=== PATIENT | male | born 1980 | race Caucasian/White ===

== ENCOUNTER 2017-11-09 17:38 | Emergency (ER) | payer BC, SELFPAY | END 2017-11-09 20:15 | disposition left against medical advice (07) | LOC: ER 20:20 | PROVIDERS: Emergency Provider Emergency Medicine | DX: Z53.29 Procedure and treatment not carried out because of patient's decision for other reasons (principal) | CPT/HCPCS: 99211 ==

== ENCOUNTER 2018-01-31 09:33 | Emergency (ER) | payer BC, SELFPAY ==
[2018-01-31 09:33] VITALS: BP 140/97; PULSE 86; RESP 16; TEMP 36.4; O2SAT 100; BMI 29.2
--- NOTE | 2018-01-31 09:41 | HMH.EDFALL ---
ED Disposition Clinical Impression: Fall, Hypertension, Contusion of hip, right, Lumbar disc disease Disposition: Home, Self-Care Condition on Discharge: Fair Additional Instructions: 1- rest. 2- ice . 3- alternate motrinand tylenol for pain. 4- see pcp in am to discuss, ct scan report and need for an outpatient MRI. 5- nuro vascualr checks and return for any changes. - Critical Care Critical Care Time: No Attestation: On , the high probability of a clinically significant, sudden or life threatening deterioration of the following system(s) required my full and direct attention, intervention and personal management. The time I documented below is in addition to time spent performing reported procedures but includes the following listed in this critical care notation. Medical Decision Making - Edwin Inquiry Pt receiving controlled substance: No Edwin was queried for this patient: No Vital Signs: 01/31/18 09:33 Temperature 97.6 F Temperature Source Oral Pulse Rate [Right Brachial] 86 Respiratory Rate 16 Blood Pressure [Right Arm] 140/97 Blood Pressure Mean [Right Arm] 111 Blood Pressure Source [Right Arm] Automatic Cuff Blood Pressure Position [Right Arm] Supine 02 Sat by Pulse Oximetry 100 Oxygen Delivery Method Room Air Orders (Tests/Meds): ED MEDICATIONS Discontinued Medications Generic Name Dose Route Start Last Admin Trade Name Freq PRN Reason Stop Dose Admin Ketorolac Tromethamine 30 mg 01/31/18 09:42 01/31/18 10:11 Toradol 30mg/Ml Vial IV 01/31/18 09:43 Not Given ONCE ONE Ketorolac Tromethamine 15 mg 01/31/18 09:42 01/31/18 10:11 Toradol 30mg/Ml Vial IV 01/31/18 09:43 15 mg ONCE ONE Administration Fall HPI - General Chief Complaint: Fall Stated Complaint: fall Time Seen by Provider: 01/31/18 10:40 Mode of Arrival: EMS Limitations: No Limitations Description of Symptoms (Recalled from ER Triage Doc. by RN): fell down 3 steps and injured right hip and tailbone - History of Present Illness HPI Narrative: 37 years old white male who was taking his 22 years old son to work when slipped on icy concret steps outside the house. The patient slipped and landed on the right buttock area, he traveled into the house and contacted the EMS service brought him to the ED for evaluation. He denies having numbness tingling weakness of the lower extremities, there is no loss of urine or bowel count. He has no radicular pain to the lower extreme. He denies that he hit his head or neck, he denies loss of conscious, denies recent consumption of alcohol or use of drugs. MD complaint: fall Onset (ago): minute(s) (30 minutes prior to arrival.) Fall from: standing Place fall occurred: home Loss of consciousness: none Prolonged down time: no Symptoms prior to fall: none Context: tripped/slipped Location of injury: buttocks (Right buttock.) Severity: severe Severity scale (1-10): 10 Quality: dull, other (Dull throbbing pain without radiation.) Associated symptoms (after fall): denies - Related Data Home Medications Medication Instructions Recorded Confirmed Atorvastatin Calcium [Atorvastatin 10 mg PO DAILY 01/31/18 01/31/18 10mg Tab] Lisinopril [Lisinopril 10mg Tab] 10 mg PO DAILY 01/31/18 01/31/18 Allergies Allergy/AdvReac Type Severity Reaction Status Date / Time No Known Drug Allergies Allergy Unknown Verified 01/31/18 10:10 [facility] History I have reviewed the patient's past medical history: Yes (History was provided by the patient and EMS.) - Social History Educational Level: Completed High School Smoking Status: Current every day smoker Tobacco Type: cigarettes Alcohol Intake: never - Psychiatric History Expresses thoughts of harming self/others: None Suicide Plan Description: No Plan ROS Obtained: Yes All systems reviewed & no additional complaints Physical Exam - General General appearance: alert, in no apparent dist
--- NOTE | 2018-01-31 09:42 | CT_ITS ---
CT lumbar spine wo con INDICATION: Low back pain following injury ITS.REASON: fall ORDERING PHYSICIAN: Meryl Irizarry MD PATIENT AGE: 37 years COMPARISON: None TECHNIQUE: Axial images are obtained without contrast. Sagittal and coronal reformatted images are reviewed as well. All CT scans at the facility use one or more dose reduction, viz: automated exposure control; ma/kV adjustment per patient size (including targeted exams where dose is matched to indication; i.e. head); or iterative reconstruction technique. FINDINGS: Normal alignment. No fracture or dislocation. Minimal bulging disc is present at L4-L5 and L5-S1. No prevertebral soft tissue swelling. No lytic or blastic change. Incidental note made of prominent left renal pelvis versus parapelvic renal cysts. IMPRESSION: 1. No acute fracture. 2. Minimal bulging disc at L4-5 and L5-S1. 3. Prominent left renal pelvis versus parapelvic renal cyst
--- NOTE | 2018-01-31 09:42 | CT_ITS ---
CT pelvis wo con INDICATION: Pelvic pain following injury ITS.REASON: fall ORDERING PHYSICIAN: Meryl Irizarry MD PATIENT AGE: 37 years COMPARISON: None TECHNIQUE: Axial images are obtained without contrast. Sagittal and coronal reformatted images are reviewed as well. All CT scans at the facility use one or more dose reduction, viz: automated exposure control; ma/kV adjustment per patient size (including targeted exams where dose is matched to indication; i.e. head); or iterative reconstruction technique. FINDINGS: No fracture or dislocation. No lytic or blastic change. No obvious pelvic mass or hematoma IMPRESSION: Negative CT pelvis, no acute fracture apparent
--- NOTE | 2018-01-31 09:46 | ED_ITS ---
ED Disposition Clinical Impression: Fall, Hypertension, Contusion of hip, right, Lumbar disc disease Disposition: Home, Self-Care Condition on Discharge: Fair Additional Instructions: 1- rest. 2- ice . 3- alternate motrinand tylenol for pain. 4- see pcp in am to discuss, ct scan report and need for an outpatient MRI. 5- nuro vascualr checks and return for any changes. - Critical Care Critical Care Time: No Attestation: On , the high probability of a clinically significant, sudden or life threatening deterioration of the following system(s) required my full and direct attention, intervention and personal management. The time I documented below is in addition to time spent performing reported procedures but includes the following listed in this critical care notation. Medical Decision Making - Edwin Inquiry Pt receiving controlled substance: No Edwin was queried for this patient: No Vital Signs: 01/31/18 09:33 Temperature 97.6 F Temperature Source Oral Pulse Rate [Right Brachial] 86 Respiratory Rate 16 Blood Pressure [Right Arm] 140/97 Blood Pressure Mean [Right Arm] 111 Blood Pressure Source [Right Arm] Automatic Cuff Blood Pressure Position [Right Arm] Supine 02 Sat by Pulse Oximetry 100 Oxygen Delivery Method Room Air Orders (Tests/Meds): ED MEDICATIONS Discontinued Medications Generic Name Dose Route Start Last Admin Trade Name Freq PRN Reason Stop Dose Admin Ketorolac Tromethamine 30 mg 01/31/18 09:42 01/31/18 10:11 Toradol 30mg/Ml Vial IV 01/31/18 09:43 Not Given ONCE ONE Ketorolac Tromethamine 15 mg 01/31/18 09:42 01/31/18 10:11 Toradol 30mg/Ml Vial IV 01/31/18 09:43 15 mg ONCE ONE Administration Fall HPI - General Chief Complaint: Fall Stated Complaint: fall Time Seen by Provider: 01/31/18 10:40 Mode of Arrival: EMS Limitations: No Limitations Description of Symptoms (Recalled from ER Triage Doc. by RN): fell down 3 steps and injured right hip and tailbone - History of Present Illness HPI Narrative: 37 years old white male who was taking his 22 years old son to work when slipped on icy concret steps outside the house. The patient slipped and landed on the right buttock area, he traveled into the house and contacted the EMS service brought him to the ED for evaluation. He denies having numbness tingling weakness of the lower extremities, there is no loss of urine or bowel count. He has no radicular pain to the lower extreme. He denies that he hit his head or neck, he denies loss of conscious, denies recent consumption of alcohol or use of drugs. MD complaint: fall Onset (ago): minute(s) (30 minutes prior to arrival.) Fall from: standing Place fall occurred: home Loss of consciousness: none Prolonged down time: no Symptoms prior to fall: none Context: tripped/slipped Location of injury: buttocks (Right buttock.) Severity: severe Severity scale (1-10): 10 Quality: dull, other (Dull throbbing pain without radiation.) Associated symptoms (after fall): denies - Related Data Home Medications Medication Instructions Recorded Confirmed Atorvastatin Calcium [Atorvastatin 10 mg PO DAILY 01/31/18 01/31/18 10mg Tab] Lisinopril [Lisinopril 10mg Tab] 10 mg PO DAILY 01/31/18 01/31/18
[2018-01-31 10:51] VITALS: BP 132/89; PULSE 78; RESP 18; TEMP 36.9; O2SAT 96
== END 2018-01-31 10:53 | disposition home or self-care (01) ==
PROVIDERS: Emergency Provider Emergency Medicine
DX: S70.01XA Contusion of right hip, initial encounter (principal); M51.9 Unspecified thoracic, thoracolumbar and lumbosacral intervertebral disc disorder; W01.0XXA Fall on same level from slipping, tripping and stumbling without subsequent striking against object, initial encounter; Y92.019 Unspecified place in single-family (private) house as the place of occurrence of the external cause
CPT/HCPCS: 72131; 72192; 96374; 99282

== ENCOUNTER → 2018-04-06 14:19 | Outpatient (CLI) | payer OTHER, SELFPAY ==
--- NOTE | 2018-04-06 14:22 | US_ITS ---
US scrotum HISTORY: Testicular pain following injury ITS.REASON: Testilar Injury ORDERING PHYSICIAN: Pk Higgins MD PATIENT AGE: 37 years Comparison: None FINDINGS: The right testicle measures 3.8 x 2.7 x 2.9 cm. Blood flow is present. No mass or of significant anomalies evident. The left testicle is 3.5 x 2 x 3 cm. Blood flow is present. There is a small varicocele on the left. No testicular mass or hematoma. No abnormal fluid collections. IMPRESSION: Small left-sided varicocele otherwise negative bilateral testicular ultrasound
== END ==
PROVIDERS: PCP Family Medicine; Visit Provider Emergency Medicine
DX: S39.94XA Unspecified injury of external genitals, initial encounter (principal)
CPT/HCPCS: 76870

== ENCOUNTER 2019-02-07 21:27 | Observation (INO) ==
[2019-02-07 21:50] LABS: Basophils # 0.1 K/mm3 (0-0.2); Basophils % 1.1 % (0.1-2.0); Eosinophils # 0.2 K/mm3 (0.0-0.4); Eosinophils % 2.2 % (0.1-12.0); Hemoglobin 15.5 g/dL (14.1-18.0); Lymphocytes # 3.2 K/mm3 (0.7-4.5); Lymphocytes % 45.3 % (10-50); Mean Corpuscular HGB Conc 33.8 g/dL (31.8-35.4); Mean Corpuscular Hemoglobin 28.4 pg (27.0-31.2); Mean Corpuscular Volume 83.9 fl (80-94); Mean Platelet Volume 7.2 fl (7.4-10.4); Monocytes # 0.5 K/mm3 (0.1-1.0); Monocytes % 6.5 % (1.7-9.3); Neutrophils # 3.2 K/mm3 (1.8-7.8); Neutrophils % 44.9 % (37.0-80.0); Platelet Count 267 K/mm3 (142-424); Red Blood Count 5.48 M/mm3 (4.60-6.20); Red Cell Distribution Width 12.9 % (11.5-17.5)
[2019-02-07 22:04] LABS: Alanine Aminotransferase 77 U/L (12-78); Albumin Level 4.1 gm/dL (3.4-5.0); Alkaline Phosphatase 68 U/L (46-116); Anion Gap 13.7 mEq/L (5-15); Aspartate Amino Transferase 32 U/L (15-37); Bilirubin,Total 0.3 mg/dL (0.2-1.0); Blood Urea Nitrogen 14 mg/dL (7-18); Calcium 9.3 mg/dL (8.5-10.1); Carbon Dioxide 29 mmol/L (21.0-32.0); Chloride 103 mmol/L (98-107); Globulin 4.1 gm/dl (1.3-3.2); Glucose 102 mg/dL (74-106); Potassium 3.7 mmoL/L (3.5-5.1); Sodium 142 mmol/L (136-145); Total Protein,Serum 8.2 gm/dL (6.4-8.2)
--- NOTE | 2019-02-07 22:04 | Emergency Department Note ---
ED Disposition Clinical Impression: Renal insufficiency, Obesity (BMI 30.0-34.9) Chest pain Qualifiers: Chest pain type: precordial pain Qualified Code(s): R07.2 - Precordial pain Hypertension Qualifiers: Hypertension type: essential hypertension Qualified Code(s): I10 - Essential (primary) hypertension Hyperlipidemia Qualifiers: Hyperlipidemia type: unspecified Qualified Code(s): E78.5 - Hyperlipidemia, unspecified Disposition: Admitted as Observation Condition on Discharge: Good Referrals: Barb Guadalupe MD [Primary Care Provider] - - Critical Care Critical Care Time: No Attestation: On 02/07/19, the high probability of a clinically significant, sudden or life threatening deterioration of the following system(s) required my full and direct attention, intervention and personal management. The time I documented below is in addition to time spent performing reported procedures but includes the following listed in this critical care notation. Medical Decision Making - Medical Records Medical records reviewed: Yes: I reviewed the patient's medical records. - Edwin Inquiry Pt receiving controlled substance: No Vital Signs: 02/07/19 21:28 Temperature 98.1 F Temperature Source Oral Pulse Rate [Right Brachial] 98 H Respiratory Rate 18 Blood Pressure [Right Arm] 153/112 H Blood Pressure Mean [Right Arm] 125 Blood Pressure Source [Right Arm] Automatic Cuff Blood Pressure Position [Right Arm] Supine 02 Sat by Pulse Oximetry 98 Oxygen Delivery Method Room Air - Lab Data Lab results reviewed: Yes: I reviewed the patient's lab results. Lab Results 02/07/19 21:40: WBC 7.0, RBC 5.48, Hgb 15.5, Hct 46.0, MCV 83.9, MCH 28.4, MCHC 33.8, RDW 12.9, Plt Count 267, MPV 7.2 L, Neut % (Auto) 44.9, Lymph % (Auto) 45.3, [place] % (Auto) 6.5, Eos % (Auto) 2.2, Baso % (Auto) 1.1, Neut # (Auto) 3.2, Lymph # (Auto) 3.2, [place] # (Auto) 0.5, Eos # (Auto) 0.2, Baso # (Auto) 0.1 02/07/19 21:40: Sodium 142, Potassium 3.7, Chloride 103, Carbon Dioxide 29, Anion Gap 13.7, BUN 14, Creatinine 1.47 H, Estimated Creat Clear 90, Estimated GFR 53 L, Est GFR ( Amer) 64, Glucose 102, Calcium 9.3, Total Bilirubin 0.3, AST 32, ALT 77, Alkaline Phosphatase 68, Troponin I < 0.02, Total Protein 8.2, Albumin 4.1, Globulin 4.1 H, Albumin/Globulin Ratio 1.0 L Result diagrams: 02/07/19 21:40 02/07/19 21:40 Orders (Tests/Meds): ED MEDICATIONS Generic Name Dose Route Start Last Admin Trade Name Freq PRN Reason Stop Dose Admin Sodium Chloride 10 ml 02/07/19 21:41 Saline Flush 10ml Syringe IV 03/09/19 21:40 NEEDED PRN Maintain IV Site Discontinued Medications Generic Name Dose Route Start Last Admin Trade Name Freq PRN Reason Stop Dose Admin Aspirin 324 mg 02/07/19 21:48 02/07/19 21:38 Aspirin 81mg Chewable Tablet PO 02/07/19 21:49 324 mg ONCE ONE Administration ORDERS Category Date Time Status Chest XR 2 view (NOT portable) [XR chest 2V] Stat Exams 02/07/19 21:40 Taken UA [Urinalysis and Microscopic] Stat Lab 02/07/19 21:41 Ordered 12-lead EKG Request [ECG Request by /Lorelei] Stat Y 02/07/19 21:39 Ordered - Radiology Data #1 Image(s): Chest Image Reviewed: Yes I reviewed the patient's radiology image Preliminary Findings: Normal/NAD - ECG Data Tracing #1 Normal Sinus Rhythm: Yes Ischemic changes: non-specific ST-T wave changes - Physician Consults Physician Consulted: nitin Reason -: Admission Chest Pain HPI - General Chief Complaint: Chest Pain Stated Complaint: high blood pressure, dizziness Time Seen by Provider: 02/07/19 21:40 Mode of Arrival: Ambulatory Source of Information: Patient, Medical Record Limitations: No Limitations Description of Symptoms (Recalled from ER Triage Doc. by RN): Starting around 1700 reports feeling dizzy, exhausted and persistent hypertension. Also reports left sided chest pain. Pain does not radiate and reports it to be a 2/10. - History of Present Illness HPI narrative: after moving tv yesterday has dev ant chest pain with exertion and has elevated bp - MD complaint: chest pain indicative of cardiac Onset (ago): hour(s) Duration: intermittent Activity at onset: during exertion Pain location: left chest Severity: moderate Quality: sharp Pain radiation: none Exacerbating factors: exertion Associated symptoms: other Risk Factors for CAD: Hypertension, Hypercholesterolemia, Family Hx of CAD Treatments prior to or on arrival for Cardiac Chest Pain: none - PAULA Score for Non-Stemi Age of Patient: 40-49 years old Heart Rate: 90-109 bpm Systolic Blood Pressure: 140-159 mmHg Serum Creatinine: 1.20-1.59 mg/dl CHF [place] Class: I-No CHF Other Risk Factors: None Non-Stemi Risk Score: 74 - Related Data Home Medications Medication Instructions Recorded Confirmed Atorvastatin Calcium [Atorvastatin 10 mg PO DAILY 01/31/18 02/07/19 10mg Tab] Lisinopril [Lisinopril 10mg Tab] 10 mg PO DAILY 01/31/18 02/07/19 Allergies Allergy/AdvReac Type Severity Reaction Status Date / Time No Known Drug Allergies Allergy Unknown Verified 06/03/18 09:10 [facility] History - Hepatitis A Screen Drug use history?: No High risk sexual behaviors?: No History of sexually transmitted infection?: No Currently employed?: No Childcare worker?: No Do you have indoor plumbing?: Yes Do you have electricity?: Yes Attestation statement:: This patient has been screened for Hepatitis A risk factors. I have reviewed the patient's past medical history: Yes Medical History: Reports:: Hyperlipidemia, Hypertension Other Medical History: Reports: Other Other Surgeries: Yes: No Previous Surgery Amputation: No Fractures: No - Social History Smoking Status: Never smoker Tobacco Type: cigarettes Alcohol Intake: never Substance Use Type: denies use Occupational Status: employed Housing: house Household Members: family - Psychiatric History Expresses thoughts of harming self/others: None Suicide Plan Description: No Plan Family Hx:: No significant family history ROS Obtained: Yes All systems reviewed & no additional complaints - Constitutional Constitutional: Denies fever(s) - Eyes Eyes: Denies change in vision - ENT Ears, Nose, Mouth, and Throat: Denies sore throat - Cardiovascular Cardiovascular: Reports chest pain, Denies dyspnea - Respiratory Respiratory: No cough - Gastrointestinal Gastrointestingal: Denies: abdominal pain - Genitourinary Male Genitourinary: Denies hematuria - Musculoskeletal Musculoskeletal: Denies joint pain - Integumentary/Breasts Skin/Breast: Denies rash - Neurologic Neurologic: Denies seizure-like activity Physical Exam - General General appearance: alert, obese - Head Head exam: normocephalic - Eye Eye exam: Present: PERRL, EOMI - ENT ENT exam: Present: mucous membranes moist - Neck Neck exam: Present: trachea midline - Chest Chest inspection: Present: normal inspection - Respiratory Respiratory exam: Present: normal lung sounds bilaterally. Absent: respiratory distress - Cardiovascular Cardiovascular exam: Present: regular rate, systolic murmur. Absent: rubs - Abdominal Exam Abdominal exam: Present: soft - Extremities Exam Extremities exam: Present: full ROM - Neurological Exam Neurological exam: Present: alert, oriented X3, CN II-XII intact - Psychiatric Psychiatric exam: Present: normal affect - Skin Skin exam: Absent: rash
[2019-02-08 06:25] LABS: Basophils # 0.1 K/mm3 (0-0.2); Basophils % 0.9 % (0.1-2.0); Eosinophils # 0.1 K/mm3 (0.0-0.4); Eosinophils % 2.2 % (0.1-12.0); Hemoglobin 14.5 g/dL (14.1-18.0); Lymphocytes # 2.6 K/mm3 (0.7-4.5); Lymphocytes % 41.1 % (10-50); Mean Corpuscular HGB Conc 33.6 g/dL (31.8-35.4); Mean Corpuscular Hemoglobin 28.4 pg (27.0-31.2); Mean Corpuscular Volume 84.6 fl (80-94); Mean Platelet Volume 7.4 fl (7.4-10.4); Monocytes # 0.5 K/mm3 (0.1-1.0); Monocytes % 7.4 % (1.7-9.3); Neutrophils # 3.1 K/mm3 (1.8-7.8); Neutrophils % 48.4 % (37.0-80.0); Platelet Count 230 K/mm3 (142-424); Red Blood Count 5.08 M/mm3 (4.60-6.20); Red Cell Distribution Width 12.9 % (11.5-17.5); White Blood Count 6.4 K/mm3 (4.8-10.8)
[2019-02-08 06:27] LABS: Anion Gap 13.8 mEq/L (5-15); Calcium 9.2 mg/dL (8.5-10.1); Chol/HDL Ratio 5.5 (1-3.5); Potassium 3.8 mmoL/L (3.5-5.1)
--- NOTE | 2019-02-08 07:20 | Pharmacy Consult Notes ---
[facility] Pharmacy VTE Monitoring - Patient Demographics Admission date: 02/07/19 Report Date: 02/08/19 Time: 07:19 Allergies/Adverse Reactions: Patient Allergies No Known Drug Allergies Allergy (Unknown, Verified 06/03/18 09:10) Height: 1.75 m Weight: 95.572 kg Patient Problems: Current Active Problems Hypertension (Acute) Chest pain (Acute) Renal insufficiency (Acute) Hyperlipidemia (Acute) Obesity (BMI 30.0-34.9) (Acute) - VTE Risk Labs: VTE Related Lab Results Hgb 14.5 g/dL (14.1-18.0) 02/08/19 05:50 Hct 43.0 % (42.0-52.0) 02/08/19 05:50 Plt Count 230 K/mm3 (142-424) 02/08/19 05:50 BUN 13 mg/dL (7-18) 02/08/19 05:50 Creatinine 1.06 mg/dL (0.70-1.30) D 02/08/19 05:50 Estimated Creat Clear 125 mL/min (50-200) 02/08/19 05:50 Was VTE Risk Assessment Performed: Yes VTE Risk Level: Very Low Risk Clinical Trial Participant: No - Prophylaxis VTE Prophylaxis Ordered?: Yes Types of VTE Prophylaxis: TEDS Knee High
--- NOTE | 2019-02-08 08:46 | Consult Report ---
Addendum entered and electronically signed by KHRIS Rao 02/08/19 12:18: Patient exercised on a Lexx protocol stress test for 8/2 minutes and achieved 10.1 METs of activity. Rare PVC noted. Normal ST response noted. [place] to be a negative maximal stress test. Recommend low-dose beta-parrish (Toprol-XL 25 mg nightly) for chest pain, hypertension and borderline low ejection fraction. Continue lisinopril therapy. Patient could be discharged home from a cardiology standpoint with outpatient follow-up in 2 weeks. Original Note: History of Present Illness Consult date: 02/08/19 Requesting physician: Barb Guadalupe Consult reason: chest pain Chief complaint: chest pain Additional Medical History:: 1. HTN, treated for >5 yrs 2. HLD, treated for >5 yrs 3. FH of CAD in father History of present illness: 38-year-old white male with history of hypertension and hyperlipidemia presented to the emergency department last evening for chest discomfort. Patient was at work climbing up and down a machine when he developed progressive increase in chest discomfort without radiation. He denies nausea, vomiting or diaphoresis. He does relate similar symptoms in the past prior to being started on blood pressure medications. Blood pressure in the emergency department last evening was noted to be 153/113 mmHg. Patient does relate as his blood pressure is come down his symptoms have resolved. His troponins overnight are normal. His EKG is sinus normal. Preliminary echo shows slightly reduced LVEF without wall motion abnormalities with evidence of hypertensive changes in the form of increased wall thickness. Cardiology consulted for evaluation. [facility] History Medical History: Reports:: Hyperlipidemia, Hypertension Denies:: Cancer, Diabetes Mellitus Type 1, Diabetes Mellitus Type 2, MRSA *Have you ever received a pneumonia vaccine?: No *Have you received a flu vaccine this season?: No Other Medical History: Reports: Other Other Surgeries: Yes: No Previous Surgery Amputation: No Fractures: No - *Social History Educational Level: Completed High School Smoking Status: Never smoker Tobacco Type: cigarettes Alcohol Intake: never Substance Use Type: denies use *Occupational Status:: employed Housing: house Household Members: family *Travel in the last 8 weeks: None - Psychiatric History Expresses thoughts of harming self/others: None Suicide Plan Description: No Plan Family Hx:: Asthma, Diabetes, Hyperlipidemia, Hypertension Meds Home Medications Medication Instructions Recorded Confirmed Type Atorvastatin Calcium [Atorvastatin 10 mg PO DAILY 01/31/18 02/07/19 History 10mg Tab] Lisinopril [Lisinopril 10mg Tab] 10 mg PO DAILY 01/31/18 02/07/19 History Allergies Allergy/AdvReac Type Severity Reaction Status Date / Time No Known Drug Allergies Allergy Unknown Verified 06/03/18 09:10 Review of Systems - *Cardiovascular Reports chest pain, Reports shortness of breath with activity, Denies fast heart rate - *Respiratory Reports shortness of breath with activity, Denies cough - *Gastrointestinal Denies abdominal pain, Denies loose stools - *Genitourinary Denies blood in urine - *Musculoskeletal Denies joint pain, Denies back pain - *Neurologic Denies seizure-like activity Exam Vital signs and Labs for Last 24 Hours: Temp Pulse Resp BP Pulse Ox 97.9 F 74 15 127/83 98 02/08/19 07:25 02/08/19 07:25 02/08/19 07:25 02/08/19 07:25 02/08/19 07:25 Laboratory Results - last 24 hr 02/07/19 21:40: WBC 7.0, RBC 5.48, Hgb 15.5, Hct 46.0, MCV 83.9, MCH 28.4, MCHC 33.8, RDW 12.9, Plt Count 267, MPV 7.2 L, Neut % (Auto) 44.9, Lymph % (Auto) 45.3, [place] % (Auto) 6.5, Eos % (Auto) 2.2, Baso % (Auto) 1.1, Neut # (Auto) 3.2, Lymph # (Auto) 3.2, [place] # (Auto) 0.5, Eos # (Auto) 0.2, Baso # (Auto) 0.1 02/07/19 21:40: Sodium 142, Potassium 3.7, Chloride 103, Carbon Dioxide 29, Anion Gap 13.7, BUN 14, Creatinine 1.47 H, Estimated Creat Clear 90, Estimated GFR 53 L, Est GFR ( Amer) 64, Glucose 102, Calcium 9.3, Total Bilirubin 0.3, AST 32, ALT 77, Alkaline Phosphatase 68, Troponin I < 0.02, Total Protein 8.2, Albumin 4.1, Globulin 4.1 H, Albumin/Globulin Ratio 1.0 L 02/08/19 01:45: Troponin I < 0.02 02/08/19 04:41: Troponin I < 0.02 02/08/19 05:50: WBC 6.4, RBC 5.08, Hgb 14.5, Hct 43.0, MCV 84.6, MCH 28.4, MCHC 33.6, RDW 12.9, Plt Count 230, MPV 7.4, Neut % (Auto) 48.4, Lymph % (Auto) 41.1, [place] % (Auto) 7.4, Eos % (Auto) 2.2, Baso % (Auto) 0.9, Neut # (Auto) 3.1, Lymph # (Auto) 2.6, [place] # (Auto) 0.5, Eos # (Auto) 0.1, Baso # (Auto) 0.1 02/08/19 05:50: Sodium 142, Potassium 3.8, Chloride 104, Carbon Dioxide 28, Anion Gap 13.8, BUN 13, Creatinine 1.06 D, Estimated Creat Clear 125, Estimated GFR 77, Est GFR ( Amer) 94 D, Glucose 91, Calcium 9.2, Magnesium 2.2, Triglycerides 211 H, Cholesterol 170, LDL Cholesterol 97, VLDL Cholesterol 42 H, HDL Cholesterol 31, Cholesterol/HDL Ratio 5.5 H I & O for Last 24 hours: Intake & Output 02/05/19 02/06/19 02/07/19 02/08/19 11:59 11:59 11:59 11:59 Intake Total 411 / 411 Output Total 400 / 400 Balance Weight 210 lb 11.203 oz - *Routine HEENT Exam Head: Present: normocephalic Eye: Present: EOMI, PERRL ENT: Present: mucous membranes moist - *Routine Neck Exam Present: supple. Absent: JVD, carotid bruit - *Routine Respiratory Exam Present: CTA bilaterally. Absent: accessory muscle use, rales, rhonchi, wheezes - *Routine Cardiovascular Exam Present: RRR. Absent: murmur, gallop, rubs - *Routine Abdominal Exam Present: soft. Absent: tenderness, distended, guarding - *Routine Extremities Exam Absent: edema, calf tenderness - *Routine Neurological Exam Present: alert, oriented X3, moving all extremities Assessment and Plan (1) Chest pain Current visit: Yes Status: Acute Qualifiers: Chest pain type: precordial pain Qualified Code(s): R07.2 - Precordial pain Category: Medical Code(s): R07.9 - Chest pain, unspecified (2) Hyperlipidemia Current visit: Yes Status: Acute Qualifiers: Hyperlipidemia type: unspecified Qualified Code(s): E78.5 - Hyperlipidemia, unspecified Category: Medical Code(s): E78.5 - Hyperlipidemia, unspecified (3) Hypertension Current visit: Yes Status: Acute Qualifiers: Hypertension type: essential hypertension Qualified Code(s): I10 - Essential (primary) hypertension Category: Medical Code(s): I10 - Essential (primary) hypertension - Assessment and plan all Dx Assessment and Plan for all problems:: 1. With normal troponins, normal EKG and resolution of symptoms with improved BP, will recommend GXT today for further evaluation. 2. Borderline reduced LVEF without wall motion abnormalities likely due to hypertensive heart disease. 3. Further recommendations to follow.
--- NOTE | 2019-02-08 09:04 | History & Physical Report ---
*Admission Date: 02/07/19 *Chief complaint: Chest pain and high blood pressure. *History of present illness: Mr. Brown is a 38-year-old male with a history of hypertension and hyperlipidemia who was brought to the emergency room by his coworkers after experiencing chest discomfort while working. 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 He describes the chest discomfort as being sharp and continuous. It was associated with some shortness of breath. He denies nausea, vomiting, diaphoresis and palpitations. He states he had some similar symptoms in the past prior to being started on blood pressure medication. Blood pressure in the emergency room was noted to be 153/113. With a decrease in his blood pressure his symptoms did resolve. This a.m. he denies chest discomfort and shortness of breath. Cardiology has seen patient this a.m. with notation as follows: Troponins overnight have been normal. EKG appears normal. Preliminary echo shows a slight reduced left ventricular ejection fraction without wall motion abnormalities with evidence of hypertensive changes in the form of increased wall thickness. Recommend [facility] History Medical History: Reports:: Hyperlipidemia, Hypertension Denies:: Cancer, Diabetes Mellitus Type 1, Diabetes Mellitus Type 2, MRSA *Have you ever received a pneumonia vaccine?: No *Have you received a flu vaccine this season?: No Other Medical History: Reports: Other Other Surgeries: Yes: No Previous Surgery Amputation: No Fractures: No - *Social History Educational Level: Completed High School Smoking Status: Never smoker Alcohol Intake: never Substance Use Type: denies use *Occupational Status:: employed Housing: house Household Members: family *Travel in the last 8 weeks: None - Psychiatric History Expresses thoughts of harming self/others: None Suicide Plan Description: No Plan Family Hx:: Asthma, Diabetes, Hyperlipidemia, Hypertension Review of Systems - Constitutional Denies headache(s) - Eyes Denies change in vision - ENT Denies ear pain, Denies sore throat - *Cardiovascular Reports chest pain, Reports shortness of breath - *Respiratory Reports shortness of breath, Denies chest congestion, Denies cough - *Gastrointestinal Reports heartburn, Denies change in bowel habits - *Genitourinary Denies difficulty urinating - *Musculoskeletal Denies joint pain - *Neurologic Denies headache(s), Denies seizure-like activity Meds Home Medications Medication Instructions Recorded Confirmed Type Lisinopril [Lisinopril 10mg Tab] 10 mg PO DAILY 01/31/18 02/07/19 History Atorvastatin Calcium [Atorvastatin 20 mg PO HS 02/08/19 02/08/19 History 20mg Tab] Allergies Allergy/AdvReac Type Severity Reaction Status Date / Time No Known Drug Allergies Allergy Unknown Verified 06/03/18 09:10 Exam Vital signs and Labs for Last 24 Hours: Temp Pulse Resp BP Pulse Ox 97.9 F 70 15 127/83 98 02/08/19 07:25 02/08/19 08:00 02/08/19 07:25 02/08/19 07:25 02/08/19 07:25 Laboratory Results - last 24 hr 02/07/19 21:40: WBC 7.0, RBC 5.48, Hgb 15.5, Hct 46.0, MCV 83.9, MCH 28.4, MCHC 33.8, RDW 12.9, Plt Count 267, MPV 7.2 L, Neut % (Auto) 44.9, Lymph % (Auto) 45.3, [place] % (Auto) 6.5, Eos % (Auto) 2.2, Baso % (Auto) 1.1, Neut # (Auto) 3.2, Lymph # (Auto) 3.2, [place] # (Auto) 0.5, Eos # (Auto) 0.2, Baso # (Auto) 0.1 02/07/19 21:40: Sodium 142, Potassium 3.7, Chloride 103, Carbon Dioxide 29, Anion Gap 13.7, BUN 14, Creatinine 1.47 H, Estimated Creat Clear 90, Estimated GFR 53 L, Est GFR ( Amer) 64, Glucose 102, Calcium 9.3, Total Bilirubin 0.3, AST 32, ALT 77, Alkaline Phosphatase 68, Troponin I < 0.02, Total Protein 8.2, Albumin 4.1, Globulin 4.1 H, Albumin/Globulin Ratio 1.0 L 02/08/19 01:45: Troponin I < 0.02 02/08/19 04:41: Troponin I < 0.02 02/08/19 05:50: WBC 6.4, RBC 5.08, Hgb 14.5, Hct 43.0, MCV 84.6, MCH 28.4, MCHC 33.6, RDW 12.9, Plt Count 230, MPV 7.4, Neut % (Auto) 48.4, Lymph % (Auto) 41.1, [place] % (Auto) 7.4, Eos % (Auto) 2.2, Baso % (Auto) 0.9, Neut # (Auto) 3.1, Lymph # (Auto) 2.6, [place] # (Auto) 0.5, Eos # (Auto) 0.1, Baso # (Auto) 0.1 02/08/19 05:50: Sodium 142, Potassium 3.8, Chloride 104, Carbon Dioxide 28, Anion Gap 13.8, BUN 13, Creatinine 1.06 D, Estimated Creat Clear 125, Estimated GFR 77, Est GFR ( Amer) 94 D, Glucose 91, Calcium 9.2, Magnesium 2.2, Triglycerides 211 H, Cholesterol 170, LDL Cholesterol 97, VLDL Cholesterol 42 H, HDL Cholesterol 31, Cholesterol/HDL Ratio 5.5 H I & O for Last 24 hours: Intake & Output 02/05/19 02/06/19 02/07/19 02/08/19 11:59 11:59 11:59 11:59 Intake Total 411 / 411 Output Total 400 / 400 Balance Weight 210 lb 11.203 oz Radiology Reports for the Last 24 Hours: Chest x-ray 02/07/2019 IMPRESSION: Negative chest, no acute finding - Constitutional no acute distress - *Routine HEENT Exam Head: Present: normocephalic, atraumatic Eye: Present: PERRL. Absent: conjunctival icterus, scleral injection ENT: Present: mucous membranes moist, oropharynx clear - *Routine Neck Exam Present: supple. Absent: carotid bruit, lymphadenopathy, thyromegaly - Routine Chest/Breast/Axilla Exam Chest wall: Absent: tenderness - *Routine Respiratory Exam Present: CTA bilaterally (Anteriorly and posteriorly) - *Routine Cardiovascular Exam Present: RRR - *Routine Abdominal Exam Present: soft, normoactive bowel sounds. Absent: tenderness, distended - *Routine Extremities Exam Absent: edema, calf tenderness - *Routine Neurological Exam Present: alert, oriented X3 Assessment and Plan (1) Chest pain Current visit: Yes Status: Acute Qualifiers: Chest pain type: precordial pain Qualified Code(s): R07.2 - Precordial pain Category: Medical Code(s): R07.9 - Chest pain, unspecified (2) Hyperlipidemia Current visit: Yes Status: Acute Qualifiers: Hyperlipidemia type: unspecified Qualified Code(s): E78.5 - Hyperlipidemia, unspecified Category: Medical Code(s): E78.5 - Hyperlipidemia, unspecified (3) Hypertension Current visit: Yes Status: Acute Qualifiers: Hypertension type: essential hypertension Qualified Code(s): I10 - Essential (primary) hypertension Category: Medical Code(s): I10 - Essential (primary) hypertension - Assessment and plan all Dx Assessment and Plan for all problems:: Will have GXT today. Saline lock Troponin I's have been normal x3. Lipid profile reveals LDL at 97. Chest x-ray is negative.
--- NOTE | 2019-02-08 13:00 | Progress Note ---
Internal Medicine - PN: Subj *Date: 02/08/19 *Time: 12:57 Interval history: Cardiolyte GXT negative. Cardiology recommends discharge on Beta-parrish and continue Lisinopril. Will follow-up in [facility] next week. Exam Vital signs and Labs for Last 24 Hours: Temp Pulse Resp BP Pulse Ox 98.0 F 78 17 117/70 96 02/08/19 11:39 02/08/19 11:39 02/08/19 11:39 02/08/19 11:39 02/08/19 11:39 Laboratory Results - last 24 hr 02/07/19 21:40: WBC 7.0, RBC 5.48, Hgb 15.5, Hct 46.0, MCV 83.9, MCH 28.4, MCHC 33.8, RDW 12.9, Plt Count 267, MPV 7.2 L, Neut % (Auto) 44.9, Lymph % (Auto) 45.3, [place] % (Auto) 6.5, Eos % (Auto) 2.2, Baso % (Auto) 1.1, Neut # (Auto) 3.2, Lymph # (Auto) 3.2, [place] # (Auto) 0.5, Eos # (Auto) 0.2, Baso # (Auto) 0.1 02/07/19 21:40: Sodium 142, Potassium 3.7, Chloride 103, Carbon Dioxide 29, Anion Gap 13.7, BUN 14, Creatinine 1.47 H, Estimated Creat Clear 90, Estimated GFR 53 L, Est GFR ( Amer) 64, Glucose 102, Calcium 9.3, Total Bilirubin 0.3, AST 32, ALT 77, Alkaline Phosphatase 68, Troponin I < 0.02, Total Protein 8.2, Albumin 4.1, Globulin 4.1 H, Albumin/Globulin Ratio 1.0 L 02/08/19 01:45: Troponin I < 0.02 02/08/19 04:41: Troponin I < 0.02 02/08/19 05:50: WBC 6.4, RBC 5.08, Hgb 14.5, Hct 43.0, MCV 84.6, MCH 28.4, MCHC 33.6, RDW 12.9, Plt Count 230, MPV 7.4, Neut % (Auto) 48.4, Lymph % (Auto) 41.1, [place] % (Auto) 7.4, Eos % (Auto) 2.2, Baso % (Auto) 0.9, Neut # (Auto) 3.1, Lymph # (Auto) 2.6, [place] # (Auto) 0.5, Eos # (Auto) 0.1, Baso # (Auto) 0.1 02/08/19 05:50: Sodium 142, Potassium 3.8, Chloride 104, Carbon Dioxide 28, Anion Gap 13.8, BUN 13, Creatinine 1.06 D, Estimated Creat Clear 125, Estimated GFR 77, Est GFR ( Amer) 94 D, Glucose 91, Calcium 9.2, Magnesium 2.2, Triglycerides 211 H, Cholesterol 170, LDL Cholesterol 97, VLDL Cholesterol 42 H, HDL Cholesterol 31, Cholesterol/HDL Ratio 5.5 H I & O for Last 24 hours: Intake & Output 02/06/19 02/07/19 02/08/19 02/09/19 11:59 11:59 11:59 11:59 Intake Total 411 / 411 Output Total 400 / 400 Balance Weight 210 lb 11.203 oz Assessment and Plan (1) Chest pain Current visit: Yes Status: Acute Qualifiers: Chest pain type: precordial pain Qualified Code(s): R07.2 - Precordial pain Category: Medical Code(s): R07.9 - Chest pain, unspecified (2) Hyperlipidemia Current visit: Yes Status: Acute Qualifiers: Hyperlipidemia type: unspecified Qualified Code(s): E78.5 - Hyperlipidemia, unspecified Category: Medical Code(s): E78.5 - Hyperlipidemia, unspecified (3) Hypertension Current visit: Yes Status: Acute Qualifiers: Hypertension type: essential hypertension Qualified Code(s): I10 - Essential (primary) hypertension Category: Medical Code(s): I10 - Essential (primary) hypertension - Assessment and plan all Dx Assessment and Plan for all problems:: Discharge. Bisoprolol 5mg daily. Continue Lisinopril.
--- NOTE | 2019-02-08 19:57 | Cardiology Report ---
PROCEDURE: 2-D M-mode and color Doppler study INDICATIONS FOR THE TEST: Chest pain+ COPD Heart Murmur Tobacco Smoking Palpitations Fatigue Syncope Edema Hypertension+Diabetes Mellitus Rheumatic Fever SOB WILKINS Obesity+Hyperlipidemia+ Family History HD Additional History BOTH CHILDREN HAD ASD/PFO'S REPAIRED PATIENT INFORMATION HEIGHT: 69 WEIGHT:210 GENDER: Male B/P:153/112 2-D/M-MODE INTERPRETATION: 2-D MEASUREMENTS OBSERVED VALUES IN CMS Right Ventricular Dimension (RVDd) 2.6 Interventricular Septum (Thickness)(IVsd) 1.0 Left Ventricular Internal Dimensions(LVIDd) 5.7 Left Ventricular Posterior Wall (Thickness)(LVPWd) 0.7 Aortic Root 3.3 Aortic Cusp Separation 2.0 Left Atrial Dimensions (LAD) 3.5 2D 1. Left atrium is mildly enlarged, left ventricle is normal size, visually estimated ejection fraction 55% with no regional wall motion abnormality, there is mild concentric left ventricular hypertrophy present. 2. The right atrium and right ventricle are normal size and contractility. 3. The intra-atrial septum is intact, there is no flow across the intra-atrial septum. 4. The aortic valve is minimally thickened and fibrosed. 5. The mitral and tricuspid valvular grossly normal. 6. The pulmonic valve is poorly present. 7. No significant pericardial effusion noted. DOPPLER INTERROGATION: Doppler interrogation of the aortic, mitral and tricuspid valvular presence of mild mitral and tricuspid regurgitation, tricuspid regurgitation jet velocity is inadequate for calculation of the right ventricular systolic pressure, grade 1 diastolic dysfunction seen without tissue Doppler evidence of raised left atrial pressure. There is no flow across the intra-atrial septum to suggest atrial septal defect. CONCLUSION: 1. Mildly enlarged left atrium, normal left ventricular size, mild concentric left ventricular hypertrophy, visually estimated ejection fraction 55% with no regional wall motion abnormality, grade 1 diastolic dysfunction seen without tissue Doppler evidence of raised left atrial pressure. 2. No obvious echocardiographic evidence of atrial septal defect. 3. Mild mitral and tricuspid regurgitation 4. No significant pericardial effusion noted.
--- NOTE | 2019-02-08 22:20 | Discharge Summary ---
General - General Admission date:: 02/07/19 Discharge date: 02/08/19 HPI HPI: Mr. Brown is a 38-year-old male with a history of hypertension and hyperlipidemia who was brought to the emergency room by his coworkers after experiencing chest discomfort while working. 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 He describes the chest discomfort as being sharp and continuous. It was associated with some shortness of breath. He denies nausea, vomiting, diaphoresis and palpitations. He states he had some similar symptoms in the past prior to being started on blood pressure medication. Blood pressure in the emergency room was noted to be 153/113. With a decrease in his blood pressure his symptoms did resolve. This a.m. he denies chest discomfort and shortness of breath. Cardiology has seen patient this a.m. with notation as follows: Troponins overnight have been normal. EKG appears normal. Preliminary echo shows a slight reduced left ventricular ejection fraction without wall motion abnormalities with evidence of hypertensive changes in the form of increased wall thickness. Recommend GXT. Hospital Course Hospital Course: The patient's chest x-ray showed nothing acute. The patient's echo showed a borderline reduced LVEF without wall motion abnormalities likely due to hypertensive heart disease. Cardiology felt he needed stress test. He did the stress test and it was felt to be negative. Cardiology felt he could be discharged home on a low-dose beta-parrish for chest pain, hypertension, and borderline low ejection fraction. They felt he should continue his lisinopril. He will follow-up with cardiology in 2 weeks. Objective Vital signs: Temp Pulse Resp BP Pulse Ox 98.0 F 78 17 117/70 96 02/08/19 11:39 02/08/19 11:39 02/08/19 11:39 02/08/19 11:39 02/08/19 11:39 Narrative: - Constitutional no acute distress - *Routine HEENT Exam Head: Present: normocephalic, atraumatic Eye: Present: PERRL. Absent: conjunctival icterus, scleral injection ENT: Present: mucous membranes moist, oropharynx clear - *Routine Neck Exam Present: supple. Absent: carotid bruit, lymphadenopathy, thyromegaly - Routine Chest/Breast/Axilla Exam Chest wall: Absent: tenderness - *Routine Respiratory Exam Present: CTA bilaterally (Anteriorly and posteriorly) - *Routine Cardiovascular Exam Present: RRR - *Routine Abdominal Exam Present: soft, normoactive bowel sounds. Absent: tenderness, distended - *Routine Extremities Exam Absent: edema, calf tenderness - *Routine Neurological Exam Present: alert, oriented X3 Results Labs on day of discharge: Labs from last 24 hours 02/08/19 02/08/19 02/08/19 05:50 05:50 04:41 WBC 6.4 RBC 5.08 Hgb 14.5 Hct 43.0 MCV 84.6 MCH 28.4 MCHC 33.6 RDW 12.9 Plt Count 230 MPV 7.4 Neut % (Auto) 48.4 Lymph % (Auto) 41.1 [place] % (Auto) 7.4 Eos % (Auto) 2.2 Baso % (Auto) 0.9 Neut # (Auto) 3.1 Lymph # (Auto) 2.6 [place] # (Auto) 0.5 Eos # (Auto) 0.1 Baso # (Auto) 0.1 Sodium 142 Potassium 3.8 Chloride 104 Carbon Dioxide 28 Anion Gap 13.8 BUN 13 Creatinine 1.06 D Estimated Creat Clear 125 Estimated GFR 77 Est GFR ( Amer) 94 D Glucose 91 Calcium 9.2 Magnesium 2.2 Troponin I < 0.02 Triglycerides 211 H Cholesterol 170 LDL Cholesterol 97 VLDL Cholesterol 42 H HDL Cholesterol 31 Cholesterol/HDL Ratio 5.5 H 02/08/19 01:45 WBC RBC Hgb Hct MCV MCH MCHC RDW Plt Count MPV Neut % (Auto) Lymph % (Auto) [place] % (Auto) Eos % (Auto) Baso % (Auto) Neut # (Auto) Lymph # (Auto) [place] # (Auto) Eos # (Auto) Baso # (Auto) Sodium Potassium Chloride Carbon Dioxide Anion Gap BUN Creatinine Estimated Creat Clear Estimated GFR Est GFR ( Amer) Glucose Calcium Magnesium Troponin I < 0.02 Triglycerides Cholesterol LDL Cholesterol VLDL Cholesterol HDL Cholesterol Cholesterol/HDL Ratio DS: Diagnosis - Discharge Diagnosis (1) Chest pain Status: Acute (2) Hyperlipidemia Status: Acute (3) Hypertension Status: Acute Discharge Plan - Patient Discharge Instructions ACTIVITY: Continue current activity DIET: regular diet Patient Instructions: Angina, Echocardiogram, Heart-Healthy Diet, DI for Angina - Follow up Plan Follow up with: Barb Guadalupe MD [Primary Care Provider] - 02/14/19 Disposition: Home, [facility] Medications: Home Medications Medication Instructions Recorded Confirmed Type Lisinopril [Lisinopril 10mg Tab] 10 mg PO DAILY 01/31/18 02/07/19 History Atorvastatin Calcium [Atorvastatin 20 mg PO HS 02/08/19 02/08/19 History 20mg Tab] Bisoprolol Fumarate [Bisoprolol 5 mg PO DAILY #30 tab 02/08/19 Rx 5mg Tablet] Prescriptions/Medication Reconciliation: New Bisoprolol Fumarate [Bisoprolol 5mg Tablet] 5 mg PO DAILY #30 tab Continue Lisinopril [Lisinopril 10mg Tab] 10 mg PO DAILY Atorvastatin Calcium [Atorvastatin 20mg Tab] 20 mg PO HS
== END 2019-02-08 13:30 | disposition home or self-care (01) ==
LOC: ER 21:27 → 2ND 21:27
PROVIDERS: ADMIT Family Medicine; ATTEND Family Medicine
CPT/HCPCS: 36415; 71020; 71046; 80048; 80053; 80061; 83735; 84484; 85025; 93005; 93017; 93306; 99284; G0378

== ENCOUNTER → 2019-12-02 12:03 | Outpatient (CLI) | payer BC, SELFPAY ==
--- NOTE | 2019-12-02 12:07 | XR_ITS ---
PROCEDURE: XR HIP RT 2-3V W/PELVIS CLINICAL INDICATION: RIGHT HIP PAIN COMPARISON: No exams were available for comparison FINDINGS: No fracture or dislocation is evident. No significant degenerative change. No lytic or blastic change. Unremarkable soft tissues. IMPRESSION: No acute findings. Dictated by: Giovanni Hicks 12/02/2019 14:36 Electronically signed by Giovanni Hicks in [place] 12/02/2019 14:36
== END ==
PROVIDERS: PCP Family Medicine; Visit Provider Family Medicine
DX: M25.551 Pain in right hip (principal)
CPT/HCPCS: 73502